=== PATIENT | male | born 1985 | race African-American/Black ===

== ENCOUNTER 2016-03-10 12:17 | Inpatient (IN) | payer OTHER ==
[2016-03-10 13:37] VITALS: BMI 22.4
--- NOTE | 2016-03-10 15:06 | HP ---
COWS - Scale Resting Pulse: 0= [place] 80 or Below Sweatin=Flushed/Facial Moisture Restless Observation: 1= Difficult to Sit Still Pupil Size: 1= Pupils >than Normal Bone or Joint Aches: 1= Mild Discomfort Runny Nose/ Eye Tearin= Runny Nose/Eyes GI Upset > 30mins: 1= Stomach Cramp Tremor Observation: 0= None Yawning Observation: 0= None Anxiety or Irritability: 2=Irritable/Anxious Goose Flesh Skin: 3=Piloerection COWS Score: 13 Admission ROS S - HPI Chief Complaint: WITHDRAWAL SX. Allergies/Adverse Reactions: Allergies Allergy/AdvReac Type Severity Reaction Status Date / Time No Known Allergies Allergy Verified 03/10/16 13:37 History of Present Illness: 30 Y/O MAN WITH A LONG HX. OF HEROIN DEPENDENCE IS ADMITTED FOR DETOX. PT. HAS BEEN IN PREVIOUS DETOX,DENIES SIGNIFICANT PERIOD DRUG FREE. Exam Limitations: No Limitations - Ebola screening Have you traveled outside of the country in the last 21 days: No Have you had contact with anyone from an Ebola affected area: No Have you been sick,other than usual withdrawal symptoms: No Do you have a fever: No - Review of Systems Constitutional: Diaphoresis EENT: reports: Nose Congestion Respiratory: reports: No Symptoms reported Cardiac: reports: No Symptoms Reported GI: reports: Abdominal cramping : reports: No Symptoms Reported Musculoskeletal: reports: Back Pain Integumentary: reports: Lumps (AT SITE OF INJECTIONS), Sweating Neuro: reports: No Symptoms reported Endocrine: reports: No Symptoms Reported Hematology: reports: No Symptoms Reported Psychiatric: reports: No Sypmtoms Reported Other Systems: Reviewed and Negative Patient History - Patient Medical History Hx Anemia: No Hx Asthma: No Hx Chronic Obstructive Pulmonary Disease (COPD): No Hx Cancer: No Hx Cardiac Disorders: No Hx Congestive Heart Failure: No Hx Hypertension: No Hx Hypercholesterolemia: No Hx Pacemaker: No HX Cerebrovascular Accident: No Hx Seizures: No Hx Dementia: No Hx Diabetes: No Hx Gastrointestinal Disorders: No Hx Liver Disease: No Hx Genitourinary Disorders: No Hx Sexually Transmitted Disorders: No Hx Renal Disease (ESRD): No Hx Thyroid Disease: No Hx Human Immunodeficiency Virus (HIV): No Hx Hepatitis C: No Hx Depression: Yes (SELF REPORTED) Hx Suicide Attempt: No Hx Schizophrenia: No - Patient Surgical History Past Surgical History: Yes Hx Neurologic Surgery: No Hx Cataract Extraction: No Hx Cardiac Surgery: No Hx Lung Surgery: No Hx Breast Surgery: No Hx Breast Biopsy: No Hx Abdominal Surgery: No Hx Appendectomy: No Hx Cholecystectomy: No Hx Genitourinary Surgery: No Hx Section: No Hx Orthopedic Surgery: No Other Surgical History: reconstructive sx, right small finger in 2010 - PPD History Previous Implant?: Yes Documented Results: Negative w/o proof Implanted On Prior [facility] Admission?: Yes Date: 10/01/14 Results: 0 mm PPD to be Administered?: Yes - Smoking Cessation Smoking history: Current every day smoker Have you smoked in the past 12 months: Yes Aproximately how many cigarettes per day: 10 Hx Chewing Tobacco Use: No Initiated information on smoking cessation: Yes 'Breaking Loose' booklet given: 03/10/16 - Substance & Tx. History Hx Alcohol Use: No (LAST DRINK 4 YRS. AGO) Hx Substance Use: Yes Substance Use Type: Heroin Hx Substance Use Treatment: Yes (DETOX) - Substances Abused Heroin Route: Injection Frequency: Daily Amount used: 10-12 BAGS Age of first use: 26 Date of Last Use: 03/10/16 Family Disease History - Family Disease History Family Disease History: Diabetes: Grandparent, Mother, CA: Grandparent, Mother, Other: Father (opiate dependence ) Admission Physical Exam [facility] - Vital Signs Vital Signs: Vital Signs - 24 hr 03/10/16 13:35 Temperature 97.5 F L Pulse Rate 76 Respiratory 18 Rate Blood Pressure 127/72 - Physical General Appearance: Yes: Irritable, Sweating, Anxious HEENTM: Yes: Nasal Congestion, Rhinorrhea Respiratory: Yes: Chest Non-Tender, Lungs Clear, Normal Breath Sounds Neck: Yes: Supple Breast: Yes: Breast Exam Deferred Cardiology: Yes: Regular Rhythm, Regular Rate, S1, S2 Abdominal: Yes: Normal Bowel Sounds, Non Tender, Soft Genitourinary: Yes: Within Normal Limits Back: Yes: Within Normal Limits Musculoskeletal: Yes: Within Normal Limits Extremities: Yes: Within Normal Limits Neurological: Yes: Fully Oriented, Alert Integumentary: Yes: Erythema (AT INJECTION SITES), Track Dominguez (MULTIPLE ENDURATION AT INJECTION SITES) Lymphatic: Yes: Within Normal Limits - Diagnostic (1) Opioid dependence with withdrawal Current Visit: Yes Status: Acute Cleared for Admission [facility] - Detox or Rehab [facility] Level of Care: Medically Managed Detox Regimen/Protocol: Methadone [facility] Breath Alcohol Content Breath Alcohol Content: 0 Urine Drug Screen - Results Drug Screen Negative: No Urine Drug Screen Results: OPI-Opiates, MET-Methamphetamine, OXY-Oxycodone
[2016-03-10] MEDS ORDERED: IBUPROFEN 400 MG TABLET (FP) PO PRN (15:24)
[2016-03-10] MEDS ORDERED: P-EPHED 60MG/TRIPROLIDI 2.5MG TABLET PO PRN (15:24)
[2016-03-10] MEDS ORDERED: MAGNESIUM HYDROX 2400MG/30ML ORAL SUSPENSION 30 ML CUP PO PRN (15:24)
[2016-03-10] MEDS ORDERED: guaiFENesin/D-METHORPHAN HB 10 ML UNIT-DOSE CUPS PO PRN (15:24)
[2016-03-10] MEDS ORDERED: MAGNESIUM CITRATE 300 ML BOTTLE PO PRN (15:24)
[2016-03-10] MEDS ORDERED: ACETAMINOPHEN 325 MG TABLET (FP) PO PRN (15:24)
[2016-03-10] MEDS ORDERED: MAG HYDROX/AL HYDROX/SIMETH 30 ML UNIT-DOSE CUP PO PRN (15:24)
[2016-03-10] MEDS ORDERED: NICOTINE POLACRILEX 2 MG GUM BUC PRN (15:24)
[2016-03-10] MEDS ORDERED: LOPERAMIDE HCL 2 MG CAPSULE PO PRN (15:24)
[2016-03-10] MEDS ORDERED: MENTHOL/PHENOL 1 EACH UD MM PRN (15:31)
[2016-03-10] MEDS ORDERED: METHADONE HCL 10 MG TABLET (FOR DETOX USE ONLY) PO ONE ×2 (15:34→23:00)
[2016-03-10] MEDS ORDERED: LEVOFLOXACIN 500 MG TABLET (FP) PO SCH (16:00)
[2016-03-10] MEDS: NICOTINE 21 MG/24 HOURS TOPICAL PATCH TD SCH (17:00)
[2016-03-10] MEDS: diazePAM 5 MG TABLET PO PRN ×2 (17:00→22:14)
[2016-03-10] MEDS: THIAMINE HCL 100 MG TABLET (FP) PO SCH (22:13)
[2016-03-10] MEDS: BACITRACIN 0.9 GM PACKET TP SCH (22:13)
[2016-03-10] MEDS: diphenhydrAMINE HCL 50 MG CAPSULE PO PRN (22:14)
[2016-03-11] MEDS: LEVOFLOXACIN 500 MG TABLET (FP) PO SCH (05:48)
[2016-03-11] MEDS: diazePAM 5 MG TABLET PO PRN ×4 (05:48→22:01)
[2016-03-11] MEDS ORDERED: METHADONE HCL 10 MG TABLET (FOR DETOX USE ONLY) PO ONE (10:00)
[2016-03-11] MEDS: BACITRACIN 0.9 GM PACKET TP SCH ×2 (10:08→22:01)
[2016-03-11] MEDS: PRENATAL VITAMINS W/ FOLIC ACID TABLET (FP) PO SCH (10:08)
--- NOTE | 2016-03-11 10:14 | PN ---
[facility] COWS - Scale Resting Pulse: 0= [place] 80 or Below Sweatin=Flushed/Facial Moisture Restless Observation: 1= Difficult to Sit Still Pupil Size: 0= Normal to Room Light Bone or Joint Aches: 1= Mild Discomfort Runny Nose/ Eye Tearin= Nasal Congestion GI Upset > 30mins: 2= Nausea/Diarrhea Tremor Observation of Outstretched Hands: 2= Slight Tremor Visible Yawning Observation: 0= None Anxiety or Irritability: 2=Irritable/Anxious Goose Flesh Skin: 0=Smooth Skin COWS Score: 11 S Progress Note (SOAP) Subjective: SWEATING,INTERRUPTED SLEEP,RESTLESS,ANXIETY Objective: 03/11/16 10:14 Vital Signs 03/11/16 03/11/16 03:31 06:23 Temperature 97.8 F Pulse Rate 64 Respiratory 16 18 Rate Blood Pressure 113/69 Assessment: 03/11/16 10:14 WITHDRAWAL SX. Plan: CONTINUE DETOX
[2016-03-11] MEDS: NICOTINE 21 MG/24 HOURS TOPICAL PATCH TD SCH (10:31)
[2016-03-11 11:01] LABS: MCH 26.6 pg (25.7-33.7); MCHC 31.7 g/dl (32.0-35.9); MEAN PLT VOLUME 8.3 fl (7.5-11.1); RDW 13.5 % (11.9-15.9); WHITE BLOOD COUNT 5.5 K/mm3 (4.0-10.0)
[2016-03-11 11:29] LABS: ALBUMIN 3.4 g/dl (3.4-5.0); ALK PHOS 93 U/L (45-117); ANION GAP 7 (8-16); BILIRUBIN,TOTAL 0.7 mg/dL (0.2-1.0); CALCIUM 9.1 mg/dL (8.5-10.1); CO2 30 mmol/L (21-32); CREATININE 0.9 mg/dL (0.7-1.3); GLUCOSE,RANDOM 106 mg/dL (74-106); SGOT/AST 17 U/L (15-37); SGPT/ALT 19 U/L (12-78); TOT PROT 8.1 g/dl (6.4-8.2)
[2016-03-11 12:07] LABS: PLATELET ESTIMATE ADEQUATE (NORMAL)
--- NOTE | 2016-03-11 15:50 | CONSULT ---
[facility] Psychiatric Consult - Data Date of interview: 03/11/16 Admission source: [facility] Identifying data: Readmission to [facility] for this 30 y/o AA male seeking detox treatment on for heroin dependence.Patient is a superficially cooperative and guarded historian. Substance Abuse History: - Smoking Cessation. Smoking history: Current every day smoker. Have you smoked in the past 12 months: Yes. Aproximately how many cigarettes per day: 10. Hx Chewing Tobacco Use: No. Initiated information on smoking cessation: Yes. 'Breaking Loose' booklet given: 03/10/16. - Substance & Tx. History. Hx Alcohol Use: No (LAST DRINK 4 YRS. AGO). Hx Substance Use: Yes. Substance Use Type: Heroin. Hx Substance Use Treatment: Yes (DETOX). - Substances Abused. Heroin. Route: Injection. Frequency: Daily. Amount used: 10-12 BAGS. Age of first use: 26. Date of Last Use: 03/10/16. Confirmed by patient. Medical History: Patient endorses good general health.Noted history of reconstructive surgery (right small finger) in 2010. Psychiatric History: Patient denies. Physical/Sexual Abuse/Trauma History: Patient denies. Mental Status Exam - Mental Status Exam Alert and Oriented to: Time, Place, Person Cognitive Function: Grossly Intact Patient Appearance: Disheveled Mood: Withdrawn Affect: Appropriate, Normal Range Patient Behavior: Sedated, Fatigued Speech Pattern: Clear, Delayed Voice Loudness: Normal Thought Process: Goal Oriented Thought Disorder: Not Present Hallucinations: Denies Suicidal Ideation: Denies Homicidal Ideation: Denies Insight/Judgement: Poor Sleep: Fair Appetite: Good Muscle strength/Tone: Normal Gait/Station: Normal Psychiatric Findings - Problem List ([place] 1, 2,3) (1) Opioid dependence with withdrawal Current Visit: Yes Status: Acute (2) Amphetamine abuse Current Visit: Yes Status: Acute (3) Nicotine dependence Current Visit: Yes Status: Acute - Initial Treatment Plan Initial Treatment Plan: Psychoeducation.Detoxification.Observation.
[2016-03-11 16:00] LABS: URINE APPEARANCE CLEAR; URINE BILIRUBIN NEGATIVE (NEGATIVE); URINE BLOOD NEGATIVE (NEGATIVE); URINE COLOR YELLOW; URINE GLUCOSE (UA) NEGATIVE (NEGATIVE); URINE KETONE NEGATIVE (NEGATIVE); URINE LEUK ESTERASE NEGATIVE (NEGATIVE); URINE NITRITE NEGATIVE (NEGATIVE); URINE PROTEIN NEGATIVE (NEGATIVE); URINE UROBILINOGEN 2.0 E.U/dl E.U./dl (0.2-1.0)
[2016-03-11] MEDS: diphenhydrAMINE HCL 50 MG CAPSULE PO PRN (22:01)
[2016-03-11] MEDS: THIAMINE HCL 100 MG TABLET (FP) PO SCH (22:01)
[2016-03-12] MEDS: diazePAM 5 MG TABLET PO PRN ×4 (05:17→20:53)
[2016-03-12] MEDS: LEVOFLOXACIN 500 MG TABLET (FP) PO SCH (05:17)
[2016-03-12] MEDS ORDERED: METHADONE HCL 5 MG TABLET (FOR DETOX USE ONLY) PO ONE (10:00)
[2016-03-12] MEDS: PRENATAL VITAMINS W/ FOLIC ACID TABLET (FP) PO SCH (10:14)
[2016-03-12] MEDS: BACITRACIN 0.9 GM PACKET TP SCH ×2 (10:14→22:56)
[2016-03-12] MEDS: NICOTINE 21 MG/24 HOURS TOPICAL PATCH TD SCH (10:15)
--- NOTE | 2016-03-12 13:36 | PN ---
S COWS - Scale Resting Pulse: 0= [place] 80 or Below Sweatin=Flushed/Facial Moisture Restless Observation: 1= Difficult to Sit Still Pupil Size: 0= Normal to Room Light Bone or Joint Aches: 1= Mild Discomfort Runny Nose/ Eye Tearin= Nasal Congestion GI Upset > 30mins: 1= Stomach Cramp Tremor Observation of Outstretched Hands: 2= Slight Tremor Visible Yawning Observation: 1= 1-2x During Session Anxiety or Irritability: 2=Irritable/Anxious Goose Flesh Skin: 0=Smooth Skin COWS Score: 11 S Progress Note (SOAP) Subjective: ANXIETY,SWEATING,INTERRUPTED SLEEP,RESTLESS Objective: 03/12/16 13:35 Vital Signs - 8 hr 03/12/16 03/12/16 06:08 10:00 Temperature 97.2 F L 97.0 F L Pulse Rate 64 60 Respiratory 18 18 Rate Blood Pressure 112/72 113/70 Laboratory Last Values WBC 5.5 K/mm3 (4.0-10.0) 03/11/16 06:00 RBC 4.95 M/mm3 (4.00-5.60) 03/11/16 06:00 Hgb 13.2 GM/dL (11.7-16.9) 03/11/16 06:00 Hct 41.6 % (35.4-49) 03/11/16 06:00 MCV 84.0 fl (80-96) 03/11/16 06:00 MCHC 31.7 g/dl (32.0-35.9) L 03/11/16 06:00 RDW 13.5 % (11.9-15.9) 03/11/16 06:00 Plt Count Not Reportable 03/11/16 06:00 MPV 8.3 fl (7.5-11.1) 03/11/16 06:00 Platelet Estimate Adequate (NORMAL) 03/11/16 06:00 Platelet Comment Slt plt clumping 03/11/16 06:00 Sodium 139 mmol/L (136-145) 03/11/16 06:00 Potassium 4.5 mmol/L (3.5-5.1) 03/11/16 06:00 Chloride 102 mmol/L (98-107) 03/11/16 06:00 Carbon Dioxide 30 mmol/L (21-32) 03/11/16 06:00 Anion Gap 7 (8-16) L 03/11/16 06:00 BUN 9 mg/dL (7-18) 03/11/16 06:00 Creatinine 0.9 mg/dL (0.7-1.3) D 03/11/16 06:00 Creat Clearance w eGFR > 60 (>60) 03/11/16 06:00 Random Glucose 106 mg/dL (74-106) D 03/11/16 06:00 Calcium 9.1 mg/dL (8.5-10.1) 03/11/16 06:00 Total Bilirubin 0.7 mg/dL (0.2-1.0) D 03/11/16 06:00 AST 17 U/L (15-37) 03/11/16 06:00 ALT 19 U/L (12-78) 03/11/16 06:00 Alkaline Phosphatase 93 U/L (45-117) 03/11/16 06:00 Total Protein 8.1 g/dl (6.4-8.2) 03/11/16 06:00 Albumin 3.4 g/dl (3.4-5.0) 03/11/16 06:00 Urine Color Yellow 03/11/16 13:00 Urine Appearance Clear 03/11/16 13:00 Urine pH 7.0 (5.0-8.0) 03/11/16 13:00 Ur Specific [place] 1.025 (1.001-1.035) 03/11/16 13:00 Urine Protein Negative (NEGATIVE) 03/11/16 13:00 Urine Glucose (UA) Negative (NEGATIVE) 03/11/16 13:00 Urine Ketones Negative (NEGATIVE) 03/11/16 13:00 Urine Blood Negative (NEGATIVE) 03/11/16 13:00 Urine Nitrite Negative (NEGATIVE) 03/11/16 13:00 Urine Bilirubin Negative (NEGATIVE) 03/11/16 13:00 Urine Urobilinogen 2.0 e.u/dl E.U./dl (0.2-1.0) 03/11/16 13:00 Ur Leukocyte Esterase Negative (NEGATIVE) 03/11/16 13:00 RPR Titer Nonreactive (NONREACTIVE) 03/11/16 06:00 LABS NOTED Assessment: 03/12/16 13:35 WITHDRAWAL SX. Plan: CONTINUE DETOX
[2016-03-12] MEDS: hydrOXYzine PAMOATE 50 MG CAPSULE (FP) PO PRN (17:51)
[2016-03-12] MEDS: THIAMINE HCL 100 MG TABLET (FP) PO SCH (22:19)
[2016-03-12] MEDS: diphenhydrAMINE HCL 50 MG CAPSULE PO PRN (22:20)
[2016-03-13] MEDS: diazePAM 5 MG TABLET PO PRN ×2 (05:33→10:15)
[2016-03-13] MEDS: LEVOFLOXACIN 500 MG TABLET (FP) PO SCH (06:23)
[2016-03-13] MEDS ORDERED: METHADONE HCL 5 MG TABLET (FOR DETOX USE ONLY) PO ONE (10:00)
[2016-03-13] MEDS: PRENATAL VITAMINS W/ FOLIC ACID TABLET (FP) PO SCH (10:13)
[2016-03-13] MEDS: BACITRACIN 0.9 GM PACKET TP SCH ×2 (11:44→22:30)
[2016-03-13] MEDS: NICOTINE 21 MG/24 HOURS TOPICAL PATCH TD SCH (11:44)
[2016-03-13] MEDS: hydrOXYzine PAMOATE 50 MG CAPSULE (FP) PO PRN ×3 (13:49→22:32)
--- NOTE | 2016-03-13 14:39 | PN ---
S Progress Note (SOAP) Subjective: Tremors, Interrupted sleep, Diarrhea, Restless legs, Body aches, Sweating. Objective: 03/13/16 14:37 Vital Signs Temperature 96.7 F L 03/13/16 13:24 Pulse Rate 85 03/13/16 13:24 Respiratory Rate 18 03/13/16 13:24 Blood Pressure 120/68 03/13/16 13:24 O2 Sat by Pulse Oximetry (%) Laboratory Last Values WBC 5.5 K/mm3 (4.0-10.0) 03/11/16 06:00 RBC 4.95 M/mm3 (4.00-5.60) 03/11/16 06:00 Hgb 13.2 GM/dL (11.7-16.9) 03/11/16 06:00 Hct 41.6 % (35.4-49) 03/11/16 06:00 MCV 84.0 fl (80-96) 03/11/16 06:00 MCHC 31.7 g/dl (32.0-35.9) L 03/11/16 06:00 RDW 13.5 % (11.9-15.9) 03/11/16 06:00 Plt Count Not Reportable 03/11/16 06:00 MPV 8.3 fl (7.5-11.1) 03/11/16 06:00 Platelet Estimate Adequate (NORMAL) 03/11/16 06:00 Platelet Comment Slt plt clumping 03/11/16 06:00 Sodium 139 mmol/L (136-145) 03/11/16 06:00 Potassium 4.5 mmol/L (3.5-5.1) 03/11/16 06:00 Chloride 102 mmol/L (98-107) 03/11/16 06:00 Carbon Dioxide 30 mmol/L (21-32) 03/11/16 06:00 Anion Gap 7 (8-16) L 03/11/16 06:00 BUN 9 mg/dL (7-18) 03/11/16 06:00 Creatinine 0.9 mg/dL (0.7-1.3) D 03/11/16 06:00 Creat Clearance w eGFR > 60 (>60) 03/11/16 06:00 Random Glucose 106 mg/dL (74-106) D 03/11/16 06:00 Calcium 9.1 mg/dL (8.5-10.1) 03/11/16 06:00 Total Bilirubin 0.7 mg/dL (0.2-1.0) D 03/11/16 06:00 AST 17 U/L (15-37) 03/11/16 06:00 ALT 19 U/L (12-78) 03/11/16 06:00 Alkaline Phosphatase 93 U/L (45-117) 03/11/16 06:00 Total Protein 8.1 g/dl (6.4-8.2) 03/11/16 06:00 Albumin 3.4 g/dl (3.4-5.0) 03/11/16 06:00 Urine Color Yellow 03/11/16 13:00 Urine Appearance Clear 03/11/16 13:00 Urine pH 7.0 (5.0-8.0) 03/11/16 13:00 Ur Specific [place] 1.025 (1.001-1.035) 03/11/16 13:00 Urine Protein Negative (NEGATIVE) 03/11/16 13:00 Urine Glucose (UA) Negative (NEGATIVE) 03/11/16 13:00 Urine Ketones Negative (NEGATIVE) 03/11/16 13:00 Urine Blood Negative (NEGATIVE) 03/11/16 13:00 Urine Nitrite Negative (NEGATIVE) 03/11/16 13:00 Urine Bilirubin Negative (NEGATIVE) 03/11/16 13:00 Urine Urobilinogen 2.0 e.u/dl E.U./dl (0.2-1.0) 03/11/16 13:00 Ur Leukocyte Esterase Negative (NEGATIVE) 03/11/16 13:00 RPR Titer Nonreactive (NONREACTIVE) 03/11/16 06:00 LABS NOTED. Assessment: 03/13/16 14:37 WITHDRAWAL SYMPTOMS. Plan: CONTINUE DETOX. RE-ORDER PLATELET LEVEL.
[2016-03-13] MEDS: THIAMINE HCL 100 MG TABLET (FP) PO SCH (22:30)
[2016-03-14] MEDS: LEVOFLOXACIN 500 MG TABLET (FP) PO SCH (05:30)
[2016-03-14] MEDS ORDERED: METHADONE HCL 10 MG TABLET (FOR DETOX USE ONLY) PO ONE (10:00)
[2016-03-14] MEDS: BACITRACIN 0.9 GM PACKET TP SCH ×2 (10:13→22:19)
[2016-03-14] MEDS: PRENATAL VITAMINS W/ FOLIC ACID TABLET (FP) PO SCH (10:13)
[2016-03-14] MEDS: NICOTINE 21 MG/24 HOURS TOPICAL PATCH TD SCH (10:14)
--- NOTE | 2016-03-14 14:17 | PN ---
[facility] Progress Note (SOAP) Subjective: SWEATING,INTERRUPTED SLEEP,RESTLESS.ABSCESSES/CELLULITIS RESOLVING WITH LEVAQUIN. Objective: 03/14/16 14:15 Vital Signs - 8 hr 03/14/16 03/14/16 06:19 10:39 Temperature 97.0 F L 97.5 F L Pulse Rate 72 96 H Respiratory 16 20 Rate Blood Pressure 113/72 114/60 Laboratory Tests 03/11/16 03/11/16 03/11/16 06:00 06:00 06:00 WBC 5.5 RBC 4.95 Hgb 13.2 Hct 41.6 MCV 84.0 MCHC 31.7 L RDW 13.5 Plt Count Not Reportable MPV 8.3 Platelet Estimate Adequate Platelet Comment Slt plt clumping Sodium 139 Potassium 4.5 Chloride 102 Carbon Dioxide 30 Anion Gap 7 L BUN 9 Creatinine 0.9 D Creat Clearance w eGFR > 60 Random Glucose 106 D Calcium 9.1 Total Bilirubin 0.7 D AST 17 ALT 19 Alkaline Phosphatase 93 Total Protein 8.1 Albumin 3.4 Urine Color Urine Appearance Urine pH Ur Specific [place] Urine Protein Urine Glucose (UA) Urine Ketones Urine Blood Urine Nitrite Urine Bilirubin Urine Urobilinogen Ur Leukocyte Esterase RPR Titer Nonreactive 03/11/16 13:00 WBC RBC Hgb Hct MCV MCHC RDW Plt Count MPV Platelet Estimate Platelet Comment Sodium Potassium Chloride Carbon Dioxide Anion Gap BUN Creatinine Creat Clearance w eGFR Random Glucose Calcium Total Bilirubin AST ALT Alkaline Phosphatase Total Protein Albumin Urine Color Yellow Urine Appearance Clear Urine pH 7.0 Ur Specific [place] 1.025 Urine Protein Negative Urine Glucose (UA) Negative Urine Ketones Negative Urine Blood Negative Urine Nitrite Negative Urine Bilirubin Negative Urine Urobilinogen 2.0 e.u/dl Ur Leukocyte Esterase Negative RPR Titer LABS NOTED Assessment: 03/14/16 14:16 WITHDRAWAL SX. HEALING ABSCESSES RESOLVING CELLULITIS Plan: CONTINUE DETOX
[2016-03-14] MEDS: hydrOXYzine PAMOATE 50 MG CAPSULE (FP) PO PRN (18:19)
[2016-03-14] MEDS: THIAMINE HCL 100 MG TABLET (FP) PO SCH (22:19)
[2016-03-14] MEDS: diphenhydrAMINE HCL 50 MG CAPSULE PO PRN ×2 (22:20→23:46)
[2016-03-15] MEDS: LEVOFLOXACIN 500 MG TABLET (FP) PO SCH (05:36)
[2016-03-15] MEDS ORDERED: METHADONE HCL 5 MG TABLET (FOR DETOX USE ONLY) PO ONE (06:00)
[2016-03-15 06:44] VITALS: BP 134/78; PULSE 70; TEMP 97
--- NOTE | 2016-03-15 08:18 | PN ---
S Progress Note (SOAP) Subjective: ALERT,NO COMPLAINT Objective: 03/15/16 08:16 Vital Signs Temperature 97 F L 03/15/16 06:43 Pulse Rate 70 03/15/16 06:43 Respiratory Rate 18 03/15/16 06:43 Blood Pressure 134/78 03/15/16 06:43 O2 Sat by Pulse Oximetry (%) Assessment: 03/15/16 08:17 DETOX COMPETED,NO WITHDRAWAL SYMPTOM Plan: DISCHARGE TODAY,FOLLOWUP WITH AFTER CARE PROGRAM ARRANGEMENT
--- NOTE | 2016-03-15 08:20 | DS ---
[facility] Detox Discharge Summary Admission Date: 03/10/16 Discharge Date: 03/15/16 - History Present History: Opioid Dependence Additional Comments: FOLLOW UP WITH AFTER CARE PROGRAM ARRANGEMENT - Physical Exam Results Vital Signs: Vital Signs Temperature 97 F L 03/15/16 06:43 Pulse Rate 70 03/15/16 06:43 Respiratory Rate 18 03/15/16 06:43 Blood Pressure 134/78 03/15/16 06:43 O2 Sat by Pulse Oximetry (%) Pertinent Admission Physical Exam Findings: WITHDRAWAL SYMPTOM - Treatment Hospital Course: Detox Protocol Followed, Detoxed Safely, Responded well, Discharged Condition Good Patient has Accepted a Rehab Referral to: DECLINED - Medication Discharge Medications: Ambulatory Orders NK [No Known Home Medication] 09/29/14 - AMA Did Patient Leave Against Medical Advice: No
== END 2016-03-15 06:44 | disposition home or self-care (01) | DRG 773 ==
LOC: YASAS 12:17 → Y3N 14:25
PROVIDERS: ADMIT Internal Medicine; ATTEND Internal Medicine
PROC: HZ2ZZZZ Detoxification Services for Substance Abuse Treatment (ICD-10-PCS; principal; 2016-03-10)
DX: F11.23 Opioid dependence with withdrawal (principal); F15.10 Other stimulant abuse, uncomplicated; F17.210 Nicotine dependence, cigarettes, uncomplicated; L03.90 Cellulitis, unspecified; L02.91 Cutaneous abscess, unspecified
CPT/HCPCS: 36415; 80053; 81003; 85027; 86593; 93005; 93010

== ENCOUNTER 2016-04-30 08:47 | Inpatient (IN) | payer OTHER ==
[2016-04-30 09:35] VITALS: BMI 22.7
--- NOTE | 2016-04-30 09:37 | HP ---
COWS - Scale Resting Pulse: 1= [place] 81-100 Sweatin= Chills/Flushing Restless Observation: 1= Difficult to Sit Still Pupil Size: 0= Normal to Room Light Bone or Joint Aches: 1= Mild Discomfort Runny Nose/ Eye Tearin= Nasal Congestion GI Upset > 30mins: 1= Stomach Cramp Tremor Observation: 1= Tremor [place], Not Seen Yawning Observation: 1= 1-2x During Session Anxiety or Irritability: 1=Feels Anxious/Irritable Goose Flesh Skin: 0=Smooth Skin COWS Score: 9 Admission ROS [facility] - HPI Chief Complaint: I want to get off the heroin, get my life together, I lost too much Allergies/Adverse Reactions: Allergies Allergy/AdvReac Type Severity Reaction Status Date / Time No Known Allergies Allergy Verified 04/30/16 09:14 History of Present Illness: 30 yo gentleman here for detox from heroin. States had pinky injury requiring surgery age 26 and was put on percocet- after a two years he started to abuse it , ran out and turned to heroin. He tried methadone program but it did not work with his job schedule. Suboxone made him feel sick. This is one of several tries at detox. Exam Limitations: Clinical Condition - Ebola screening Have you traveled outside of the country in the last 21 days: No Have you had contact with anyone from an Ebola affected area: No Do you have a fever: No - Review of Systems Constitutional: Chills, Loss of Appetite, Night Sweats, Changes in sleep EENT: reports: Nose Congestion Respiratory: reports: No Symptoms reported Cardiac: reports: No Symptoms Reported GI: reports: Nausea, Poor Appetite : reports: Dysuria Musculoskeletal: reports: Back Pain, Muscle Pain Integumentary: reports: No Symptoms Reported Neuro: reports: Headache Endocrine: reports: No Symptoms Reported Hematology: reports: No Symptoms Reported Psychiatric: reports: Judgement Intact, Mood/Affect Appropiate, Orientated x3, Anxious Other Systems: Reviewed and Negative Patient History - Patient Medical History Hx Anemia: No Hx Asthma: No Hx Chronic Obstructive Pulmonary Disease (COPD): No Hx Cancer: No Hx Cardiac Disorders: No Hx Congestive Heart Failure: No Hx Hypertension: No Hx Hypercholesterolemia: No Hx Pacemaker: No HX Cerebrovascular Accident: No Hx Seizures: No Hx Dementia: No Hx Diabetes: No Hx Gastrointestinal Disorders: No Hx Liver Disease: No Hx Genitourinary Disorders: No Hx Sexually Transmitted Disorders: No Hx Renal Disease (ESRD): No Hx Thyroid Disease: No Hx Human Immunodeficiency Virus (HIV): No Hx Hepatitis C: No Hx Depression: Yes (no meds) Hx Suicide Attempt: No Hx Schizophrenia: No - Patient Surgical History Past Surgical History: Yes Hx Neurologic Surgery: No Hx Cataract Extraction: No Hx Cardiac Surgery: No Hx Lung Surgery: No Hx Breast Surgery: No Hx Breast Biopsy: No Hx Abdominal Surgery: No Hx Appendectomy: No Hx Cholecystectomy: No Hx Genitourinary Surgery: No Hx Section: No Hx Orthopedic Surgery: No Other Surgical History: reconstructive sx, right small finger in 2010 - PPD History Previous Implant?: Yes Documented Results: Negative w/proof Date: 03/12/16 Results: 0 mm - Reproductive History Patient is a Female of Child Bearing Age (11 -55 yrs old): No (male) - Smoking Cessation Smoking history: Current every day smoker Have you smoked in the past 12 months: Yes Aproximately how many cigarettes per day: 20 Cigars Per Day: 0 Hx Chewing Tobacco Use: No Initiated information on smoking cessation: Yes 'Breaking Loose' booklet given: 04/30/16 (give on floor) - Substance & Tx. History Hx Alcohol Use: No Hx Substance Use: Yes Substance Use Type: Heroin Hx Substance Use Treatment: Yes (detox, methadone ) - Substances Abused Heroin Route: Injection Frequency: Daily Amount used: 15 BAGS Age of first use: 28 Date of Last Use: 04/30/16 Family Disease History - Family Disease History Family Disease History: Diabetes: Grandparent, Mother (alive, back pain), CA: Grandparent, Other: Father (opiate dependence, alive ), Mother Admission Physical Exam [facility] - Vital Signs Vital Signs: Vital Signs Period Temp Pulse Resp BP Sys/[place] Pulse Ox Last 24 Hr 98.0 F 80 20 127/75 - Physical General Appearance: Yes: Nourished, Appropriately Dressed, Mild Distress, Anxious HEENTM: Yes: Hearing grossly Normal, Normal ENT Inspection, Normocephalic, Normal Voice, Pharynx Normal Respiratory: Yes: Normal Breath Sounds, No Respiratory Distress Neck: Yes: No masses,lesions,Nodules, Supple Breast: Yes: Breast Exam Deferred Cardiology: Yes: Regular Rhythm, Regular Rate Abdominal: Yes: Soft Genitourinary: Yes: Hesitency Back: Yes: Normal Inspection Musculoskeletal: Yes: full range of Motion, Gait Steady, Muscle Pain Extremities: Yes: Normal Inspection Neurological: Yes: Fully Oriented, Alert, Normal Mood/Affect, Normal Response Integumentary: Yes: Normal Color, Warm, Track Dominguez Lymphatic: Yes: Within Normal Limits - Diagnostic (1) Nicotine dependence Current Visit: Yes Status: Chronic Qualifiers: Nicotine product type: cigarettes Substance use status: uncomplicated Qualified Code(s): F17.210 - Nicotine dependence, cigarettes, uncomplicated (2) Opioid dependence with withdrawal Current Visit: Yes Status: Chronic Cleared for Admission [facility] - Detox or Rehab [facility] Level of Care: Medically Managed Detox Regimen/Protocol: Methadone [facility] Breath Alcohol Content Breath Alcohol Content: 0
[2016-04-30] MEDS ORDERED: hydrOXYzine PAMOATE 50 MG CAPSULE (FP) PO PRN (09:43)
[2016-04-30] MEDS ORDERED: MENTHOL/PHENOL 1 EACH UD MM PRN (09:43)
[2016-04-30] MEDS ORDERED: LOPERAMIDE HCL 2 MG CAPSULE PO PRN (09:43)
[2016-04-30] MEDS ORDERED: MAGNESIUM HYDROX 2400MG/30ML ORAL SUSPENSION 30 ML CUP PO PRN (09:43)
[2016-04-30] MEDS ORDERED: P-EPHED 60MG/TRIPROLIDI 2.5MG TABLET PO PRN (09:43)
[2016-04-30] MEDS ORDERED: NICOTINE POLACRILEX 4 MG GUM BUC PRN (09:43)
[2016-04-30] MEDS ORDERED: ACETAMINOPHEN 325 MG TABLET (FP) PO PRN (09:43)
[2016-04-30] MEDS ORDERED: guaiFENesin/D-METHORPHAN HB 10 ML UNIT-DOSE CUPS PO PRN (09:43)
[2016-04-30] MEDS ORDERED: MAGNESIUM CITRATE 300 ML BOTTLE PO PRN (09:43)
[2016-04-30] MEDS ORDERED: IBUPROFEN 400 MG TABLET (FP) PO PRN (09:43)
[2016-04-30] MEDS ORDERED: MAG HYDROX/AL HYDROX/SIMETH 30 ML UNIT-DOSE CUP PO PRN (09:43)
[2016-04-30] MEDS ORDERED: METHADONE HCL 10 MG TABLET (FOR DETOX USE ONLY) PO ONE ×2 (11:00→23:00)
[2016-04-30] MEDS: NICOTINE 21 MG/24 HOURS TOPICAL PATCH TD SCH (13:01)
[2016-04-30] MEDS ORDERED: METHADONE HCL 10 MG TABLET (FOR DETOX USE ONLY) ONE (13:05)
[2016-04-30] MEDS: diazePAM 5 MG TABLET PO PRN ×2 (13:06→18:30)
[2016-04-30] MEDS: PRENATAL VITAMINS W/ FOLIC ACID TABLET (FP) PO SCH (13:07)
[2016-04-30 18:05] LABS: URINE APPEARANCE CLEAR; URINE BILIRUBIN NEGATIVE (NEGATIVE); URINE BLOOD NEGATIVE (NEGATIVE); URINE COLOR YELLOW; URINE GLUCOSE (UA) NEGATIVE (NEGATIVE); URINE KETONE NEGATIVE (NEGATIVE); URINE LEUK ESTERASE NEGATIVE (NEGATIVE); URINE NITRITE NEGATIVE (NEGATIVE); URINE PROTEIN NEGATIVE (NEGATIVE); URINE UROBILINOGEN NEGATIVE E.U./dl (0.2-1.0)
[2016-04-30] MEDS: diphenhydrAMINE HCL 50 MG CAPSULE PO PRN (22:12)
[2016-04-30] MEDS: THIAMINE HCL 100 MG TABLET (FP) PO SCH (22:12)
[2016-05-01] MEDS: diazePAM 5 MG TABLET PO PRN ×4 (06:44→22:09)
[2016-05-01] MEDS ORDERED: METHADONE HCL 10 MG TABLET (FOR DETOX USE ONLY) PO ONE (10:00)
[2016-05-01] MEDS: NICOTINE 21 MG/24 HOURS TOPICAL PATCH TD SCH (10:34)
[2016-05-01] MEDS: PRENATAL VITAMINS W/ FOLIC ACID TABLET (FP) PO SCH (10:35)
[2016-05-01 10:39] LABS: MCH 26.7 pg (25.7-33.7); MCHC 31.9 g/dl (32.0-35.9); MEAN CELL VOLUME 83.7 fl (80-96); MEAN PLT VOLUME 9.1 fl (7.5-11.1); PLATELET COUNT 234 K/MM3 (134-434); RDW 15.4 % (11.9-15.9); WHITE BLOOD COUNT 4.6 K/mm3 (4.0-10.0)
[2016-05-01 10:44] LABS: ALBUMIN 3.7 g/dl (3.4-5.0); ALK PHOS 110 U/L (45-117); ANION GAP 9 (8-16); BILIRUBIN,TOTAL 0.4 mg/dL (0.2-1.0); CALCIUM 8.6 mg/dL (8.5-10.1); CO2 29 mmol/L (21-32); CREATININE 0.9 mg/dL (0.7-1.3); GLUCOSE,RANDOM 125 mg/dL (74-106); SGOT/AST 16 U/L (15-37); SGPT/ALT 21 U/L (12-78)
--- NOTE | 2016-05-01 12:16 | PN ---
[facility] COWS - Scale Resting Pulse: 0= [place] 80 or Below Sweatin= Chills/Flushing Restless Observation: 3= Extraneous Movement Pupil Size: 1= Pupils >than Normal Bone or Joint Aches: 2= Severe Diffuse Aches Runny Nose/ Eye Tearin= Runny Nose/Eyes GI Upset > 30mins: 3= Vomiting/Diarrhea Tremor Observation of Outstretched Hands: 2= Slight Tremor Visible Yawning Observation: 1= 1-2x During Session Anxiety or Irritability: 2=Irritable/Anxious Goose Flesh Skin: 0=Smooth Skin COWS Score: 17 S Progress Note (SOAP) Subjective: alert,irritable,anxious,interrupted sleep,pain in the body and back Objective: 05/01/16 12:14 Vital Signs Temperature 98.2 F 05/01/16 09:34 Pulse Rate 72 05/01/16 09:34 Respiratory Rate 18 05/01/16 09:34 Blood Pressure 123/69 05/01/16 09:34 O2 Sat by Pulse Oximetry (%) ekg nasr,normal ecg Laboratory Last Values WBC 4.6 K/mm3 (4.0-10.0) 05/01/16 07:45 RBC 5.12 M/mm3 (4.00-5.60) 05/01/16 07:45 Hgb 13.7 GM/dL (11.7-16.9) 05/01/16 07:45 Hct 42.8 % (35.4-49) 05/01/16 07:45 MCV 83.7 fl (80-96) 05/01/16 07:45 MCHC 31.9 g/dl (32.0-35.9) L 05/01/16 07:45 RDW 15.4 % (11.9-15.9) D 05/01/16 07:45 Plt Count 234 K/MM3 (134-434) D 05/01/16 07:45 MPV 9.1 fl (7.5-11.1) 05/01/16 07:45 Sodium 139 mmol/L (136-145) 05/01/16 07:45 Potassium 4.1 mmol/L (3.5-5.1) 05/01/16 07:45 Chloride 101 mmol/L (98-107) 05/01/16 07:45 Carbon Dioxide 29 mmol/L (21-32) 05/01/16 07:45 Anion Gap 9 (8-16) 05/01/16 07:45 BUN 10 mg/dL (7-18) 05/01/16 07:45 Creatinine 0.9 mg/dL (0.7-1.3) 05/01/16 07:45 Creat Clearance w eGFR > 60 (>60) 05/01/16 07:45 Random Glucose 125 mg/dL (74-106) H 05/01/16 07:45 Calcium 8.6 mg/dL (8.5-10.1) 05/01/16 07:45 Total Bilirubin 0.4 mg/dL (0.2-1.0) D 05/01/16 07:45 AST 16 U/L (15-37) 05/01/16 07:45 ALT 21 U/L (12-78) 05/01/16 07:45 Alkaline Phosphatase 110 U/L (45-117) 05/01/16 07:45 Total Protein 8.0 g/dl (6.4-8.2) 05/01/16 07:45 Albumin 3.7 g/dl (3.4-5.0) 05/01/16 07:45 Urine Color Yellow 04/30/16 17:40 Urine Appearance Clear 04/30/16 17:40 Urine pH 5.0 (5.0-8.0) D 04/30/16 17:40 Ur Specific [place] 1.029 (1.001-1.035) 04/30/16 17:40 Urine Protein Negative (NEGATIVE) 04/30/16 17:40 Urine Glucose (UA) Negative (NEGATIVE) 04/30/16 17:40 Urine Ketones Negative (NEGATIVE) 04/30/16 17:40 Urine Blood Negative (NEGATIVE) 04/30/16 17:40 Urine Nitrite Negative (NEGATIVE) 04/30/16 17:40 Urine Bilirubin Negative (NEGATIVE) 04/30/16 17:40 Urine Urobilinogen Negative E.U./dl (0.2-1.0) 04/30/16 17:40 Ur Leukocyte Esterase Negative (NEGATIVE) 04/30/16 17:40 labs pending Assessment: 05/01/16 12:16 withdrawal symptom 05/01/16 12:18 Plan: continue detox,,initial glucose is 125,bgm monitoring
[2016-05-01] MEDS: THIAMINE HCL 100 MG TABLET (FP) PO SCH (22:09)
[2016-05-01] MEDS: diphenhydrAMINE HCL 50 MG CAPSULE PO PRN (22:09)
--- NOTE | 2016-05-02 00:49 | EKG ---
Test Reason : Blood Pressure : / mmHG Vent. Rate : 068 BPM Atrial Rate : 068 BPM P-R Int : 134 ms QRS Dur : 094 ms QT Int : 412 ms P-R-T Axes : 063 000 029 degrees QTc Int : 438 ms NORMAL SINUS RHYTHM NORMAL ECG NO PREVIOUS ECGS AVAILABLE Confirmed by LAURA GARCIA MD ([id number]) on 05/02/2016 12:48:49 AM Referred By: Confirmed By:LAURA GARCIA MD
[2016-05-02] MEDS: diazePAM 5 MG TABLET PO PRN ×2 (06:29→10:16)
[2016-05-02] MEDS ORDERED: METHADONE HCL 5 MG TABLET (FOR DETOX USE ONLY) PO ONE (10:00)
[2016-05-02] MEDS: PRENATAL VITAMINS W/ FOLIC ACID TABLET (FP) PO SCH (10:16)
[2016-05-02] MEDS: NICOTINE 21 MG/24 HOURS TOPICAL PATCH TD SCH (10:18)
--- NOTE | 2016-05-02 10:54 | PN ---
[facility] COWS - Scale Resting Pulse: 0= SD 80 or Below Sweatin=Flushed/Facial Moisture Restless Observation: 3= Extraneous Movement Pupil Size: 2= Moderately Dilated Bone or Joint Aches: 2= Severe Diffuse Aches Runny Nose/ Eye Tearin= Runny Nose/Eyes GI Upset > 30mins: 2= Nausea/Diarrhea Tremor Observation of Outstretched Hands: 2= Slight Tremor Visible Yawning Observation: 1= 1-2x During Session Anxiety or Irritability: 2=Irritable/Anxious Goose Flesh Skin: 0=Smooth Skin COWS Score: 18 [facility] Progress Note (SOAP) Subjective: ALERT,IRRITABLE,ANXIOUS,INTERRUPTED SLEEP,PAIN IN THE BODY AND BACK Objective: 05/02/16 10:53 Vital Signs Temperature 97.6 F 05/02/16 06:46 Pulse Rate 68 05/02/16 06:46 Respiratory Rate 18 05/02/16 06:46 Blood Pressure 107/60 05/02/16 06:46 O2 Sat by Pulse Oximetry (%) Assessment: 05/02/16 10:54 WITHDRAWAL SYMPTOM Plan: CONTINUE DETOX
--- NOTE | 2016-05-02 10:57 | PN ---
[facility] Progress Note Note: PATIENT DID NOT WANT TO COMPLETE TREATMENT,STATED HE IS NOT READY TO CONTINUE TREATMENT,SIGNED RELEASE AMA,DID NOT WANT TO WAIT,SIGNED RELEASE AMA,SEEN BY COUNSELOR
--- NOTE | 2016-05-02 11:00 | DS ---
[facility] Detox Discharge Summary Admission Date: 04/30/16 Discharge Date: 05/02/16 - History Present History: Opioid Dependence Additional Comments: PATIENT DID NOT WANT TO COMPLETE TREATMENT,STATED HE IS NOT READY TO CONTINUE TREATMENT, SIGNED RELEASE AMA,DID NOT WANT TO WAIT,SEEN BY COUNSELOR Pertinent Past History: NICOTINE DEPENDENCE - Physical Exam Results Vital Signs: Vital Signs Temperature 97.6 F 05/02/16 06:46 Pulse Rate 68 05/02/16 06:46 Respiratory Rate 18 05/02/16 06:46 Blood Pressure 107/60 05/02/16 06:46 O2 Sat by Pulse Oximetry (%) Pertinent Admission Physical Exam Findings: WITHDRAWAL SYMPTOM - Medication Discharge Medications: Ambulatory Orders NK [No Known Home Medication] 09/29/14 - AMA Did Patient Leave Against Medical Advice: Yes
[2016-05-02 11:24] VITALS: BP 130/71; PULSE 93; TEMP 97.2
--- NOTE | 2016-05-02 13:26 | CONSULT ---
[facility] Psychiatric Consult - Data Date of interview: 05/02/16 Admission source: [facility] Identifying data: Patient not found.Mr Cardoza left the unit earlier.See staff 's notes for details.
[2016-05-03] MEDS ORDERED: METHADONE HCL 5 MG TABLET (FOR DETOX USE ONLY) PO ONE (10:00)
[2016-05-04] MEDS ORDERED: METHADONE HCL 10 MG TABLET (FOR DETOX USE ONLY) PO ONE (10:00)
[2016-05-05] MEDS ORDERED: METHADONE HCL 5 MG TABLET (FOR DETOX USE ONLY) PO ONE (06:00)
== END 2016-05-02 11:06 | disposition left against medical advice (07) | DRG 770 ==
LOC: YASAS 08:47 → Y6N 09:45 → UNDODISIN 05-02 11:06 → Y6N 05-06 14:27
PROVIDERS: ADMIT Internal Medicine; ATTEND Internal Medicine Addiction Medicine
PROC: HZ2ZZZZ Detoxification Services for Substance Abuse Treatment (ICD-10-PCS; principal; 2016-04-30)
DX: F11.23 Opioid dependence with withdrawal (principal); F17.210 Nicotine dependence, cigarettes, uncomplicated
CPT/HCPCS: 36415; 80053; 81003; 85027; 86593; 93005; 93010